=== PATIENT | female | born 2005 | race African-American/Black ===

== ENCOUNTER 2024-02-05 10:32 | Outpatient (CLI) | payer OTHER, SELFPAY ==
--- NOTE | ~2024-02-05 | US_ITS ---
EXAMINATION: US OB follow up DATE: 02/05/2024 11:00 INDICATION: Assess size during normal third trimester TECHNIQUE: Real-time ultrasound of the pelvis was performed. The interpreting radiologist was not pre sent for the study. COMPARISON: None. FINDINGS: There is a single living fetus in vertex presentation. The placenta is anterior and not low-lying. F etal heart rate is 131 beats per minute (bpm). The amniotic fluid volume is subjectively normal with normal deepest vertical pocket measurement of 3.9 cm. The following biometric data were obtained: BPD: 9.6 cm -> 39 weeks 1 days Head circumference: 33.4 cm -> 38 weeks 2 days Abdominal circumference: 29.7 cm -> 33 weeks 5 days Femur length: 7.3 cm -> 37 weeks 1 days Increased head circumference to abdominal circumference ratio: 1.13 (normal range 0.92-1.05). Increased femur length to abdominal circumference ratio of 24.42 (normal range 20.0-24.0). Estimated weight: 2742 g (+/-) 411 g or 6 lbs. 1 oz. (+/-) 15 oz. IMPRESSION: 1. Single living fetus in vertex presentation with heart rate of 131 bpm. 2. Gestational age by ultrasound of 37 weeks 1 day(s) +/- 2 week(s) 4 day(s) with ultrasound estimate d date of delivery (MAGALY) of 02/25/2024. Estimated weight is 46th percentile by Hadlock criteria when 03/05/2024 is used as the MAGALY. Please correlate with clinical information or earlier ultrasound s for most accurate MAGALY. 3. And circumference to abdominal circumference ratio and femur length to abdominal circumference rat io both greater than the normal range. Reviewed, dictated and finalized at location B. TRAVEL IMPRESSION: 1. Single living fetus in vertex presentation with heart rate of 131 bpm. 2. Gestational age by ultrasound of 37 weeks 1 day(s) +/- 2 week(s) 4 day(s) wi th ultrasound estimated date of delivery (MAGALY) of 02/25/2024. Estimated w eight is 46th percentile by Hadlock criteria when 03/05/2024 is used as the MAGALY . Please correlate with clinical information or earlier ultrasounds for most ac curate MAGALY. 3. And circumference to abdominal circumference ratio and femur length to abdom inal circumference ratio both greater than the normal range.
== END 2024-02-05 10:33 | disposition home or self-care (01) ==
LOC: ANHIMG 10:38
PROVIDERS: Visit Provider Obstetrics & Gynecology
DX: Z34.90 Encounter for supervision of normal pregnancy, unspecified, unspecified trimester (principal)
CPT/HCPCS: 76816